=== PATIENT | female | born 1965 | race Caucasian/White ===

== ENCOUNTER → 2018-10-06 13:40 | Outpatient (CLI) | payer BC, SELFPAY ==
--- NOTE | 2018-10-06 | DI.US.S_ITS ---
LIMITED ULTRASOUND OF LEFT BREAST: 10/06/2018 CLINICAL: Focal left breast pain near lumpectomy site. Comparison is made to exams dated: 10/06/2018 mammogram - [facility], 07/02/2017 mammogram, 06/25/2016 mammogram, 08/25/2015 mammogram, 05/07/2015 ultrasound biopsy, and 05/04/2015 ultrasound - [facility]. Real-time ultrasound of the left breast upper outer quadrant was performed on the area of interest. IMPRESSION: NEGATIVE There is no sonographic evidence of malignancy. There is no abnormality seen in the left breast to correspond with the palpable abnormality in the upper outer quadrant, however, clinical followup is recommended. A 1 year screening mammogram is recommended. This exam was interpreted at Station ID: [id number]. Electronically Signed By: Bhupinder nixon/thea:10/06/2018 17:32:18 letter sent: Clinical Evaluation Ultrasound BI-RADS: 1 Negative
--- NOTE | 2018-10-06 | DI.MG.S_ITS ---
BILATERAL DIGITAL DIAGNOSTIC MAMMOGRAM 3D/2D POST LUMPECTOMY: 10/06/2018 CLINICAL: Pain and lump in left breast. Comparison is made to exams dated: 06/25/2016 mammogram, 08/25/2015 mammogram, and 07/02/2017 mammogram - [facility]. There are scattered fibroglandular elements in both breasts. There is irregular low density architectural distortion with an indistinct margin in the left breast at 12 o'clock middle depth. This is not significantly changed and correlates with surgery. There is a post-surgical scar associated with the architectural distortion. No other significant masses, calcifications, or other findings are seen in either breast. IMPRESSION: INCOMPLETE: NEEDS ADDITIONAL IMAGING EVALUATION The irregular low density architectural distortion in the left breast is consistent with a previous surgery and is benign. There is no abnormality seen in the left breast to correspond with the palpable abnormality at 1 o'clock, however, ultrasound is recommended. This exam was interpreted at Station ID: [id number]. NOTE: For mammograms, a report in lay terms will be sent to the patient. Approximately 15% of breast malignancies will not be visualized mammographically. In the management of a palpable breast mass, a negative mammogram must not discourage biopsy of a clinically suspicious lesion. Electronically Signed By: Bhupinder nixon/thea:10/06/2018 14:35:55 letter sent: Need Ultrasound ACR BI-RADS Category 0: Incomplete 3340F
== END ==
DX: R92.8 Other abnormal and inconclusive findings on diagnostic imaging of breast (principal); N64.4 Mastodynia
CPT/HCPCS: 76642; 77066; G0279

== ENCOUNTER → 2020-01-06 09:17 | Outpatient (CLI) | payer BC, SELFPAY ==
--- NOTE | 2020-01-06 | DI.MG.S_ITS ---
BILATERAL DIGITAL DIAGNOSTIC MAMMOGRAM 3D/2D POST LUMPECTOMY: 01/06/2020 CLINICAL: Left breast cancer. Comparison is made to exams dated: 10/06/2018 mammogram, 10/06/2018 [facility], 05/01/2015 mammogram, and 07/02/2017 mammogram - [facility]. There are scattered fibroglandular elements in both breasts. There is irregular equal density architectural distortion with an indistinct margin in the left breast at 12 o'clock middle depth. This is not significantly changed and correlates with surgery. There is a post-surgical scar, skin retraction, and trabecular thickening associated with the architectural distortion. No other significant masses, calcifications, or other findings are seen in either breast. IMPRESSION: INCOMPLETE: NEEDS ADDITIONAL IMAGING EVALUATION The irregular equal density architectural distortion in the left breast is consistent with a previous surgery and is benign. There is no abnormality seen in the left breast to correspond with the area of clinical concern in the upper outer quadrant, however, ultrasound is recommended. This exam was interpreted at Station ID: [id number]. NOTE: For mammograms, a report in lay terms will be sent to the patient. Approximately 15% of breast malignancies will not be visualized mammographically. In the management of a palpable breast mass, a negative mammogram must not discourage biopsy of a clinically suspicious lesion. Electronically Signed By: Bhupinder nixon/thea:01/06/2020 10:16:19 ACR BI-RADS Category 0: Incomplete 3340F
--- NOTE | 2020-01-06 | DI.US.S_ITS ---
LIMITED ULTRASOUND OF LEFT BREAST: 01/06/2020 CLINICAL: Focal left breast pain. Comparison is made to exams dated: 01/06/2020 mammogram, 10/06/2018 [facility], 07/02/2017 mammogram, and 06/25/2016 mammogram - [facility]. Real-time ultrasound of the left breast upper outer quadrant was performed on the area of interest. No discrete cystic or solid mass lesion identified in the area of swelling. IMPRESSION: NEGATIVE There is no sonographic evidence of malignancy. There is no abnormality seen in the left breast to correspond with the area of clinical concern in the upper outer quadrant, however, clinical followup is recommended. A 1 year screening mammogram is recommended. This exam was interpreted at Station ID: [id number]. Electronically Signed By: Bhupinder nixon/:01/06/2020 11:56:04 letter sent: Clinical Evaluation Ultrasound BI-RADS: 1 Negative
== END ==
PROVIDERS: PCP Surgery; Referring Provider Surgery; Visit Provider Surgery
DX: R92.8 Other abnormal and inconclusive findings on diagnostic imaging of breast (principal); C50.912 Malignant neoplasm of unspecified site of left female breast; N64.4 Mastodynia
CPT/HCPCS: 76642; 77066; G0279

== ENCOUNTER → 2021-01-11 08:28 | Outpatient (CLI) | payer OTHER, SELFPAY ==
[2021-01-11 09:01] LABS: Add Manual Diff / Slide Review NO; Basophils Absolute Auto 0 /uL (0-100); Basophils Percent Auto 0.5 % (0-2); Eosinophils Absolute Auto 0 /uL (0-450); Eosinophils Percent Auto 0.6 % (2-4); Hematocrit 42.7 % (36-46); Hemoglobin 13.9 g/dL (12.0-16.0); Lymphocytes Absolute Auto 1300 /uL (1100-4500); Lymphocytes Percent Auto 29.5 % (25-40); Mean Corpuscular HGB Conc 32.6 % (30-36); Mean Corpuscular Hemoglobin 28.4 PG (26-34); Mean Corpuscular Volume 87.2 fL (80-100); Monocytes Absolute Auto 300 /uL (0-900); Monocytes Percent Auto 7.1 % (3-14); Neutrophils Absolute Auto 2800 /uL (1500-7000); Neutrophils Percent Auto 62.3 % (50-75); Platelet Count 230 X10^3/uL (150-400); Red Cell Distribution Width 13.9 % (11.6-14.8); White Blood Cell Count 4.4 X10^3/uL (4.5-11.0)
[2021-01-11 09:47] LABS: Alanine Aminotransferase 18 IU/L (<35); Albumin 4.4 g/dL (3.5-5.0); Albumin Globulin Ratio 1.4 (1.0-2.8); Alkaline Phosphatase 68 U/L (38-126); Aspartate Aminotransferase 28 IU/L (14-36); BUN Creatinine Ratio 21.8 (6-22); Bilirubin Total 1.6 mg/dL (0.2-1.3); Blood Urea Nitrogen 12 mg/dL (7-17); Calcium 9.8 mg/dL (8.4-10.2); Carbon Dioxide 29 mmol/L (22-32); Chloride 103 mmol/L (98-107); Cholesterol 210 mg/dL (140-199); Estimated Glomerular Filt Rate > 60.0 mL/min (>60); Globulin 3.1 g/dL (1.7-4.1); Glucose 98 mg/dL (70-100); HDL Cholesterol 75 mg/dL (40-60); HEMOLYSIS < 15 (0-50); LDL Cholesterol Calculated 117 mg/dL (<100); Potassium 4.4 mmol/L (3.4-5.1); Sodium 138 mmol/L (137-145); Total Protein 7.5 g/dL (6.3-8.2); Triglycerides 90 mg/dL (35-150)
[2021-01-11 10:10] LABS: TSH w/ Reflex to FT4 1.69 uIU/mL (0.47-4.68)
== END ==
PROVIDERS: PCP Registered Nurse Diabetes Educator; Referring Provider Registered Nurse Diabetes Educator; Visit Provider Registered Nurse Diabetes Educator
DX: Z00.00 Encounter for general adult medical examination without abnormal findings (principal)
CPT/HCPCS: 36415; 80053; 80061; 84443; 85025

== ENCOUNTER → 2021-01-31 08:14 | Outpatient (CLI) | payer OTHER, SELFPAY ==
--- NOTE | 2021-01-31 08:15 | DI.MG.S_ITS ---
BILATERAL DIGITAL SCREENING MAMMOGRAM 3D/2D WITH CAD POST LUMPECTOMY: 01/31/2021 CLINICAL: Routine screening. Personal history of left breast cancer. Comparison is made to exams dated: 01/06/2020 mammogram, 10/06/2018 mammogram - [facility], and 07/02/2017 mammogram - [facility]. There are scattered fibroglandular elements in both breasts. Current study was also evaluated with a Computer Aided Detection (CAD) system. There are benign post operative findings in the left breast. No significant masses, calcifications, or other findings are seen in either breast. There has been no significant interval change. IMPRESSION: BENIGN There is no mammographic evidence of malignancy. A 1 year screening mammogram is recommended. This exam was interpreted at Station ID: [id number]. NOTE: For mammograms, a report in lay terms will be sent to the patient. Approximately 15% of breast malignancies will not be visualized mammographically. In the management of a palpable breast mass, a negative mammogram must not discourage biopsy of a clinically suspicious lesion. Electronically Signed By: Sergo umana/thea:01/31/2021 08:56:59 letter sent: Normal Exam ACR BI-RADS Category 2: Benign Finding(s) 3342F
== END ==
PROVIDERS: PCP Registered Nurse Diabetes Educator; Referring Provider Registered Nurse Diabetes Educator; Visit Provider Registered Nurse Diabetes Educator
DX: Z12.31 Encounter for screening mammogram for malignant neoplasm of breast (principal); Z85.3 Personal history of malignant neoplasm of breast
CPT/HCPCS: 77063; 77067

== ENCOUNTER → 2021-05-30 11:18 | Outpatient (CLI) | payer OTHER, SELFPAY ==
--- NOTE | 2021-05-30 11:20 | DI.RAD.S_ITS ---
PROCEDURE: XR DEXA AXIAL SKELETON INDICATIONS: osteoporosis COMPARISON: None. FINDINGS: This blank DEXA report has been sent in error by the PACS system. The correct and complete report will be forthcoming in 1-2 days. Thank you for your patience and understanding. Dictated by: Agata Munoz MD, PhD on 05/30/2021 at 17:16 Approved by: Agata Munoz MD, PhD on 05/30/2021 at 17:16
--- NOTE | 2021-09-12 16:25 | PC.NURSE ---
Pt questions and treatment plan: Pt with left breast DCIS inquiring about Dr. Patrick's plan of care post Dexa scan. Pt okay for this RN to leave VM with update. Per Dr. Patrick plan to start Denosumab injections, but needs dental clearance first. This RN called pt with update, no answer. Left message with plan of care and instructed pt to call back with any questions and to schedule appt.
== END ==
PROVIDERS: Family Provider Registered Nurse Diabetes Educator; PCP Registered Nurse Diabetes Educator; Referring Provider Internal Medicine Hematology & Oncology; Visit Provider Internal Medicine Hematology & Oncology
DX: M81.0 Age-related osteoporosis without current pathological fracture (principal); C50.912 Malignant neoplasm of unspecified site of left female breast; Z82.62 Family history of osteoporosis
CPT/HCPCS: 77080; 77081